=== PATIENT | female | born 1960 | race Caucasian/White ===

== ENCOUNTER → 2016-10-22 | Day surgery (SDC) | payer OTHER ==
[~2016-10-22] VITALS: Ht 170.2 cm; Wt 70.3 kg
[2016-10-22 07:28] LABS: HCT 42.3 % (37.0-47.0); HGB 14.3 g/dl (12.5-16.0); MCH 29.9 pg (25.0-31.0); MCHC 33.8 g/dL (32.0-36.0); MCV 88.5 fL (78.0-100.0); MPV 11.1 fL (6.0-9.5); RBC 4.78 M/uL (4.20-5.40); RDW 13.9 % (11.5-14.0); WBC 5.8 K/uL (4.0-10.5)
== END | disposition home or self-care (01) ==
LOC: FAS 07:18
PROVIDERS: Legal Medicine
DX: S46.012A Strain of muscle(s) and tendon(s) of the rotator cuff of left shoulder, initial encounter (principal); M19.012 Primary osteoarthritis, left shoulder; M75.42 Impingement syndrome of left shoulder; K58.9 Irritable bowel syndrome, unspecified; K21.9 Gastro-esophageal reflux disease without esophagitis; J45.909 Unspecified asthma, uncomplicated; Z88.5 Allergy status to narcotic agent; Z90.710 Acquired absence of both cervix and uterus
CPT/HCPCS: 36415; J1100; J2405; J2704; J2795; J3010